=== PATIENT | female | born 2005 | race Caucasian/White ===

== ENCOUNTER 2024-10-24 14:01 | Outpatient (CLI) | payer OTHER | END 2024-10-24 14:02 | disposition home or self-care (01) | LOC: CSHULT 14:01 | PROVIDERS: ATTEND Nurse Practitioner Family | DX: N64.4 Mastodynia (principal) | CPT/HCPCS: 76642 ==

== ENCOUNTER 2024-11-13 18:42 | Emergency (ER) | payer OTHER ==
[2024-11-13] MEDS ORDERED: diphenhydrAMINE 50 MG/ML VIAL ONE (19:44)
[2024-11-13] MEDS ORDERED: Prochlorperazine 10 MG/2 ML VIAL ONE (19:44)
[2024-11-13] MEDS ORDERED: Acetaminophen 500 MG TAB ONE (19:44)
[2024-11-13 19:53] LABS: #Basophils 0.05 10x3/uL (0.0-0.2); #Eosinophils 0.03 10x3/uL (0.0-0.5); #Monocytes 0.54 10x3/uL (0.0-1.1); #Neutrophils 2.90 10x3/uL (1.5-8.4); %Basophils 0.8 % (0.0-2.0); %Eosinophils 0.5 % (0.0-6.0); %Lymphocytes 43.4 % (18.0-47.0); %Monocytes 8.6 % (0.0-10.0); %Neutrophils 46.4 % (40.0-75.0); Hematocrit 42.7 % (34.9-44.5); Hemoglobin 14.7 g/dL (12.0-15.5); Mean Corpuscular Hemoglobin 30.1 pg (27.0-33.0); Mean Corpuscular Volume 87.3 fL (81.6-98.3); Platelet Count 275 10x3/uL (150-450); Red Blood Cell (RBC) Count 4.89 10x6/uL (3.90-5.03); White Blood Cell (WBC) Count 6.25 10x3/uL (3.5-10.5)
[2024-11-13 20:06] LABS: ALT (SGPT) 24 U/L (Less than 34); AST (SGOT) 32 U/L (11-34); Albumin 4.9 g/dL (3.1-4.5); Alkaline Phosphatase 38 U/L (40-100); Anion Gap 14 mmol/L (10-20); BUN (Urea Nitrogen) 7 mg/dL (7.0-18.7); Bilirubin, Total 0.6 mg/dL (0.3-1.2); Calc. Creatinine Clearance 0 mL/min (70-130); Calcium 9.6 mg/dL (7.8-10.44); Carbon Dioxide 21 mmol/L (22-29); Chloride 106 mmol/L (98-107); Globulin 3.4 g/dL (2.4-3.5); Glucose 76 mg/dL (70-105); Potassium 4.4 mmol/L (3.5-5.1); Sodium 137 mmol/L (136-145)
== END 2024-11-13 20:47 | disposition home or self-care (01) ==
LOC: CSHERS 18:42
DX: G43.909 Migraine, unspecified, not intractable, without status migrainosus (principal); F17.290 Nicotine dependence, other tobacco product, uncomplicated; V49.9XXA Car occupant (driver) (passenger) injured in unspecified traffic accident, initial encounter
CPT/HCPCS: 70486; 80053; 85025; 96365; 96375; J0780; J1200